=== PATIENT | male | born 1945 | race Caucasian/White ===

== ENCOUNTER 2021-03-30 19:22 | Inpatient (IN) | payer OTHER, MEDICARE ==
[2021-03-30] MEDS ORDERED: COLCHICINE 0.6 MG CAP PO ONE (20:45)
[2021-03-30] MEDS ORDERED: ALLOPURINOL 300 MG TABLET (FP) PO ONE (20:45)
[2021-03-30] MEDS ORDERED: INDOMETHACIN 50 MG CAPSULE PO ONE (20:45)
[2021-03-30 21:08] LABS: BASO % 0.6 % (0-2.0); EOS % 1.3 % (0-4.5); HEMATOCRIT 41.3 % (35.4-49); HEMOGLOBIN 13.9 GM/dL (11.7-16.9); LYMPH % 17.4 % (8-40); MCH 29.5 pg (25.7-33.7); MCHC 33.7 g/dl (32.0-35.9); MEAN CELL VOLUME 87.4 fl (80-96); MEAN PLT VOLUME 9.6 fl (7.5-11.1); MONO % 10.7 % (3.8-10.2); PLATELET COUNT 285 10^3/uL (134-434); RBC 4.72 M/mm3 (4.00-5.60); RDW 14.7 % (11.9-15.9); WHITE BLOOD COUNT 10.3 K/mm3 (4.0-10.0)
[2021-03-30 21:26] LABS: INR 0.93 (0.83-1.09); PROTHROMBIN TIME (PATIENT) 10.4 SEC (9.7-13.0)
[2021-03-30 21:34] LABS: CHLORIDE 106 mmol/L (98-107); SODIUM 135 mmol/L (136-145)
[2021-03-30 21:36] LABS: ALBUMIN 3.3 g/dl (3.4-5.0); BLOOD UREA NITROGEN 22.4 mg/dL (7-18); CALCIUM 8.9 mg/dL (8.5-10.1); CO2 27 mmol/L (21-32); GLUCOSE,RANDOM 198 mg/dL (74-106)
[2021-03-30 21:39] LABS: CREATININE 1.1 mg/dL (0.55-1.3); SGOT/AST 93 U/L (15-37)
[2021-03-30 21:41] LABS: TOT PROT 7.4 g/dl (6.4-8.2)
[2021-03-30 21:42] LABS: ALK PHOS 120 U/L (45-117)
[2021-03-30 21:47] LABS: ANION GAP 2 MMOL/L (8-16); SGPT/ALT 77 U/L (13-61)
[2021-03-30 22:10] LABS: ERYTHROCYTE SEDIMENTATION RATE 51 mm/hr (0-20)
[2021-03-30] MEDS ORDERED: LIDOCAINE HCL 2% (50ML VIAL) SQ ONE (22:21)
[2021-03-30] MEDS ORDERED: LIDOCAINE HCL 2% (20ML MULTI-DOSE VIAL) ONE (22:26)
[2021-03-30] MEDS ORDERED: CEFTRIAXONE 2 GM-D5W BAG 2 GM/50 ML BAG IVPB ONE (22:57)
[2021-03-30] MEDS ORDERED: VANCOMYCIN 1 GM in D5W (PRE-DOCKED) 1,000 MG/250 ML IVPB ONE (22:58)
[2021-03-30] MEDS ORDERED: CEFTRIAXONE 2 GM/100 ML BAG IVPB ONE (23:08)
[2021-03-30 23:10] LABS: BLOOD UREA NITROGEN 22.4 mg/dL (7-18); CALCIUM 9.1 mg/dL (8.5-10.1)
[2021-03-30 23:11] LABS: ALBUMIN 3.5 g/dl (3.4-5.0)
[2021-03-30 23:15] LABS: BILIRUBIN,TOTAL 0.7 mg/dL (0.2-1); TOT PROT 7.1 g/dl (6.4-8.2)
[2021-03-30] MEDS ORDERED: ACETAMINOPHEN 1000 MG/100 ML VIAL IVPB PRN (23:18)
[2021-03-30 23:22] LABS: BF WBC & OTHER NUCLEATED CELLS 25001 /mm3
[2021-03-30] MEDS ORDERED: VANCOMYCIN 1 GRAM (PRE-DOCKED) 1,000 MG/250 ML BAG IVPB ONE (23:25)
[2021-03-31] MEDS: SODIUM CHLORIDE 1,000 ML IV SCH (00:08)
[2021-03-31 02:08] LABS: BODY FLUID MONOCYTE 15 %
[2021-03-31 05:56] VITALS: BMI 28.2
[2021-03-31] MEDS: INSULIN SLIDING SCALE (NOVOLOG) 1 VIAL SQ SCH ×4 (06:50→21:22)
[2021-03-31] MEDS ORDERED: INSULIN (NOVOLOG) ASPART 100 UNITS/ML 10ML VIAL ONE ×2 (07:06→20:03)
[2021-03-31 08:50] LABS: BASO % 0.8 % (0-2.0); HEMATOCRIT 39.6 % (35.4-49); HEMOGLOBIN 13.5 GM/dL (11.7-16.9); LYMPH % 21.4 % (8-40); MCH 29.8 pg (25.7-33.7); MEAN CELL VOLUME 87.4 fl (80-96); MONO % 10.2 % (3.8-10.2); NEUT % 64.6 % (42.8-82.8); PLATELET COUNT 287 10^3/uL (134-434); RBC 4.53 M/mm3 (4.00-5.60); RDW 13.9 % (11.9-15.9); WHITE BLOOD COUNT 8.7 K/mm3 (4.0-10.0)
[2021-03-31 09:17] LABS: CALCIUM 8.6 mg/dL (8.5-10.1)
[2021-03-31 09:18] LABS: ALBUMIN 3.2 g/dl (3.4-5.0); MAGNESIUM 2.5 mg/dL (1.8-2.4)
[2021-03-31 09:21] LABS: BILIRUBIN,TOTAL 0.8 mg/dL (0.2-1); CREATININE 0.9 mg/dL (0.55-1.3); PHOSPHOROUS 3.8 mg/dL (2.5-4.9); TOT PROT 6.8 g/dl (6.4-8.2)
[2021-03-31] MEDS ORDERED: COLCHICINE 0.6 MG CAP PO SCH (10:00)
[2021-03-31] MEDS ORDERED: CEFTRIAXONE 2 GM in DEXTROSE 5%-WATER 100 ML IVPB ONE (10:00)
[2021-03-31] MEDS ORDERED: VANCOMYCIN 1 GM in D5W (PRE-DOCKED) 1,000 MG/250 ML IVPB ONE (10:00)
[2021-03-31] MEDS ORDERED: PT OWN MED DRAWER 7, Y5N ONE ×3 (10:23→14:48)
[2021-03-31] MEDS ORDERED: DEXTROSE 5%-WATER 100 ML IVPB ONE (10:24)
[2021-03-31] MEDS: ASPIRIN 81 MG CHEWABLE TABLETS PO SCH (10:32)
[2021-03-31] MEDS: LISINOPRIL 5 MG TABLET PO SCH (10:32)
[2021-03-31] MEDS: ENOXAPARIN NA (PORCINE) 40 MG/0.4 ML DISP.SYRIN SQ SCH (10:32)
[2021-03-31] MEDS: ATORVASTATIN CA 20 MG TABLET (FP) PO SCH (21:21)
[2021-04-01] MEDS: SODIUM CHLORIDE 1,000 ML IV SCH (06:33)
[2021-04-01] MEDS: INSULIN SLIDING SCALE (NOVOLOG) 1 VIAL SQ SCH ×4 (06:37→22:48)
[2021-04-01 09:00] LABS: BASO % 1.1 % (0-2.0); EOS % 4.5 % (0-4.5); HEMATOCRIT 39.2 % (35.4-49); HEMOGLOBIN 13.3 GM/dL (11.7-16.9); LYMPH % 25.4 % (8-40); MCH 29.9 pg (25.7-33.7); MEAN CELL VOLUME 87.7 fl (80-96); MEAN PLT VOLUME 9.9 fl (7.5-11.1); MONO % 9.3 % (3.8-10.2); NEUT % 59.7 % (42.8-82.8); PLATELET COUNT 301 10^3/uL (134-434); RBC 4.46 M/mm3 (4.00-5.60); RDW 14.2 % (11.9-15.9); WHITE BLOOD COUNT 6.6 K/mm3 (4.0-10.0)
[2021-04-01] MEDS ORDERED: PT OWN MED DRAWER 7, Y5N ONE ×3 (09:06→22:44)
[2021-04-01] MEDS ORDERED: methylPREDNISolone ACET (DEPO) 80 MG/1 ML VIAL IAR ONE (10:14)
[2021-04-01] MEDS ORDERED: LIDOCAINE 1% P/F 10 MG/ML VIAL SQ ONE (10:14)
[2021-04-01] MEDS: predniSONE 20 MG TABLET (UD) PO SCH (10:24)
[2021-04-01] MEDS: ASPIRIN 81 MG CHEWABLE TABLETS PO SCH (10:25)
[2021-04-01] MEDS: LISINOPRIL 5 MG TABLET PO SCH (10:25)
[2021-04-01] MEDS: ENOXAPARIN NA (PORCINE) 40 MG/0.4 ML DISP.SYRIN SQ SCH (10:26)
[2021-04-01] MEDS: COLCHICINE 0.6 MG CAP PO SCH ×2 (10:29→22:49)
[2021-04-01] MEDS ORDERED: INSULIN (NOVOLOG) ASPART 100 UNITS/ML 10ML VIAL ONE ×2 (11:17→17:52)
[2021-04-01 13:43] LABS: ALBUMIN 3.1 g/dl (3.4-5.0); BILIRUBIN,TOTAL 0.6 mg/dL (0.2-1); BLOOD UREA NITROGEN 19.2 mg/dL (7-18); CALCIUM 8.5 mg/dL (8.5-10.1); CREATININE 0.9 mg/dL (0.55-1.3)
[2021-04-01] MEDS ORDERED: ACETAMINOPHEN 325 MG TABLET (FP) PO PRN (16:05)
[2021-04-01] MEDS: ATORVASTATIN CA 20 MG TABLET (FP) PO SCH (22:49)
[2021-04-02] MEDS: SODIUM CHLORIDE 1,000 ML IV SCH ×2 (03:43→03:56)
[2021-04-02] MEDS: INSULIN SLIDING SCALE (NOVOLOG) 1 VIAL SQ SCH ×2 (06:03→11:16)
[2021-04-02 08:21] LABS: BASO % 0.5 % (0-2.0); EOS % 0.5 % (0-4.5); HEMATOCRIT 39.4 % (35.4-49); HEMOGLOBIN 13.3 GM/dL (11.7-16.9); LYMPH % 20.7 % (8-40); MCH 29.4 pg (25.7-33.7); MCHC 33.8 g/dl (32.0-35.9); MEAN CELL VOLUME 86.9 fl (80-96); MEAN PLT VOLUME 9.5 fl (7.5-11.1); MONO % 7.9 % (3.8-10.2); NEUT % 70.4 % (42.8-82.8); PLATELET COUNT 334 10^3/uL (134-434); RBC 4.53 M/mm3 (4.00-5.60); WHITE BLOOD COUNT 8.6 K/mm3 (4.0-10.0)
[2021-04-02] MEDS ORDERED: COLCHICINE 0.6 MG TAB PO SCH (10:00)
[2021-04-02] MEDS: ASPIRIN 81 MG CHEWABLE TABLETS PO SCH (10:11)
[2021-04-02] MEDS: ENOXAPARIN NA (PORCINE) 40 MG/0.4 ML DISP.SYRIN SQ SCH (10:12)
[2021-04-02] MEDS: predniSONE 20 MG TABLET (UD) PO SCH (10:12)
[2021-04-02] MEDS: LISINOPRIL 5 MG TABLET PO SCH (10:18)
[2021-04-02] MEDS ORDERED: INSULIN (NOVOLOG) ASPART 100 UNITS/ML 10ML VIAL ONE (11:12)
[2021-04-02 11:23] VITALS: BP 143/81; PULSE 76; TEMP 98.2
[2021-04-02 11:58] LABS: ALBUMIN 3.2 g/dl (3.4-5.0); BILIRUBIN,TOTAL 0.6 mg/dL (0.2-1); BLOOD UREA NITROGEN 17.4 mg/dL (7-18); CALCIUM 8.8 mg/dL (8.5-10.1); CREATININE 0.8 mg/dL (0.55-1.3); TOT PROT 6.6 g/dl (6.4-8.2)
== END 2021-04-02 13:34 | disposition home or self-care (01) | DRG 554 ==
LOC: JER 19:22 → JERBED 23:17 → J8W 03-31 05:28
PROVIDERS: ADMIT Internal Medicine
PROC: 0S9D3ZZ Drainage of Left Knee Joint, Percutaneous Approach (ICD-10-PCS; principal; 2021-03-30)
PROC: 0S9D3ZZ Drainage of Left Knee Joint, Percutaneous Approach (ICD-10-PCS; 2021-04-01)
PROC: 3E0U33Z Introduction of Anti-inflammatory into Joints, Percutaneous Approach (ICD-10-PCS; 2021-04-01)
DX: M10.9 Gout, unspecified (principal); E11.9 Type 2 diabetes mellitus without complications; I10 Essential (primary) hypertension; R74.01 Elevation of levels of liver transaminase levels; M25.462 Effusion, left knee; E78.5 Hyperlipidemia, unspecified; Z91.14 Patient's other noncompliance with medication regimen
CPT/HCPCS: 36415; 73564-TC-LT-FY; 73630-TC-LT; 76705-TC; 80053; 82945; 82962; 83605; 83615; 83735; 84100; 84550; 84560; 85025; 85610; 85651; 86140; 86708; 86850; 86900; 86901; 87040; 87070; 87075; 87205; 87340; 87491; 87517; 87522; 87591; 89060; 93005; 93010; 97116-GP; 97161-GP; 99285-25; C9803; J0131; U0003; U0005